=== PATIENT | female | born 1975 | race Caucasian/White ===

== ENCOUNTER 2019-06-29 20:25 | Emergency (ER) | payer MEDICAID ==
[~2019-06-29] VITALS: Ht 157.5 cm; Wt 72.6 kg
[~2019-06-29 20:25] MED LIST: AMOX500C25 PO
[2019-06-29 20:30] VITALS: BP 120/74
[2019-06-29 21:55] VITALS: BP 120/74
== END 2019-06-29 21:55 | disposition home or self-care (01) ==
LOC: MED 20:25
DX: H11.32 Conjunctival hemorrhage, left eye (principal); Z98.84 Bariatric surgery status; Z88.1 Allergy status to other antibiotic agents
CPT/HCPCS: 82948; 99282

== ENCOUNTER 2020-11-12 16:25 | Emergency (ER) | payer MEDICAID ==
[~2020-11-12] VITALS: Ht 157.5 cm; Wt 77.1 kg
--- NOTE | 2020-11-12 16:32 | NUR ---
PATIENT AMBULATED TO BED 3 WITH EVEN/STEADY GAIT.
--- NOTE | 2020-11-12 16:40 | NUR ---
PATIENT AMBULATED TO RESTROOM WITH STEADY/EVEN GAIT FOR URINE SAMPLE.
--- NOTE | 2020-11-12 16:43 | NUR ---
44 Y/O F COMING IN FROM HOME WITH C/C RLQ ABDOMINAL PAIN. PATIENT STATES SHE BEGAN EXPERIENCING RLQ ABDOMINAL PAIN A WEEK AGO. SHE STATES IT WAS INITIALLY 9/10 SHARP PAIN. PT STATES SHE PURCHASE AZO OTC AND BEGAN DRANKING CRANBERRY JUICE. PT STATES POSITIVE RELIEF WITH AZO/CRANBERRY JUICE HOWEVER, STATES THE PAIN PERSISTS IN RLQ. PT STATES IT IS NOW 8/10 PAIN THAT IS SHARP/INTERMITTENT. PT STATES ASSOCIATED DYSURIA. PT DENIES NAUSEA, VOMITING, FEVER/CHILLS, COLD-LIKE SYMPTOMS. BOWEL SOUNDS ACTIVE X 4 QUADRANTS. PT STATES LAST BM 11/12, BROWN/SEMI-FORMED. LMP 10/25/20. PT PLACED ONTO WATER OPERATOR. LUNG SOUNDS CTA. BED LOCKED IN LOWEST POSITION, SIDE RAILS X1, CALL LIGHT IN REACH. PMH/MEDS: GHADA JEFF SX: 2014 GASTRIC BYPASS
[2020-11-12 16:44] VITALS: BP 128/74
--- NOTE | 2020-11-12 16:52 | NUR ---
DR. KAUR IS EVALUATING PATIENT AT BEDSIDE.
--- NOTE | 2020-11-12 17:15 | NUR ---
PT SITTING IN SEMI-FOWLERS IN POSITION OF COMFORT. ALL PT NEEDS MET AT THIS TIME. PT REMAINS ON USABILITY SPECIALIST. EQUAL CHEST RISE AND FALL. BED LOCKED IN LOWEST POSITION, SIDE RAILS X 1, CALL LIGHT IN REACH.
[2020-11-12 17:26] VITALS: BP 111/75
--- NOTE | 2020-11-12 17:31 | NUR ---
Soledad ferrell in [facility] - 11/12/20 at 1731 by COLE D
== END 2020-11-12 17:26 | disposition home or self-care (01) ==
LOC: MED 16:25
DX: N39.0 Urinary tract infection, site not specified (principal); Z88.1 Allergy status to other antibiotic agents
CPT/HCPCS: 81002; 99283

== ENCOUNTER 2021-06-23 09:23 | Emergency (ER) | payer MEDICAID ==
[~2021-06-23] VITALS: Ht 157.5 cm; Wt 81.4 kg
[2021-06-23 09:31] VITALS: BP 129/77
[2021-06-23] MEDS ORDERED: AMOXIL/CLAVULANATE 875/125 MG 1 TAB PO ONE (09:45)
[2021-06-23] MEDS ORDERED: ACETAMINOPHEN EXTRA STRENGTH 500 MG TAB PO ONE (09:45)
[2021-06-23] MEDS ORDERED: BACITRACIN OINT 500 UNITS/GM PKT TP ONE (09:45)
--- NOTE | 2021-06-23 09:53 | NUR ---
PT TAKEN TO RAD VIA W/C
--- NOTE | 2021-06-23 09:55 | NUR ---
45 Y/O FEMALE PRESENTS TO ED WITH DOG BITE TO L HAND/THUMB LAST NIGHT. SKIN BROKEN, CONTROLLED BLEEDING. DOG HAS RABIES VACCINE. PT CLEANED BITE WITH PEROXIDE. PT RATES PAIN 10/10. PT A/O X4 WITH EVEN AND UNLABORED RESPIRATIONS. PMH:DENIES SX:GASTRIC BYPASS NKDA
--- NOTE | 2021-06-23 10:01 | NUR ---
PT BACK FROM RAD, WILL GO TO CHAIR A
--- NOTE | 2021-06-23 10:09 | NUR ---
PT WOUND DRESSED WITH NON-ADHERENT GAUZE PAD AND WRAPED WITH GAUZE ROLL
[2021-06-23] MEDS ORDERED: AMOX-1000 PO (10:26)
[2021-06-23] MEDS ORDERED: IBUP-2213 PO (10:26)
--- NOTE | 2021-06-23 10:30 | NUR ---
Soledad ferrell in [facility] - 06/23/21 at 1046 by [email or web address] DOG REPORT FAXED.
[2021-06-23 10:32] VITALS: BP 129/77
--- NOTE | 2021-06-23 10:33 | NUR ---
Patient discharged with v/s stable. Written and verbal after care instructions given and explained. Patient alert, oriented and verbalized understanding of instructions. Ambulatory with steady gait. All questions addressed prior to discharge. ID band removed. Patient advised to follow up with PMD. Rx of AMOXICILLIN/POTASSIUM given. Patient educated on indication of medication including possible reaction and side effects. Opportunity to ask questions provided and answered.
--- NOTE | 2021-06-23 10:42 | NUR ---
DOG BIT REPORT FAXED TO [facility] [phone]
== END 2021-06-23 10:32 | disposition home or self-care (01) ==
LOC: MED 09:23
DX: S61.452A Open bite of left hand, initial encounter (principal); W54.0XXA Bitten by dog, initial encounter; Y93.89 Activity, other specified; Y92.89 Other specified places as the place of occurrence of the external cause; Y99.8 Other external cause status
CPT/HCPCS: 73130; 90471; 90715; 99284; Q0092

== ENCOUNTER 2022-06-08 14:26 | Emergency (ER) | payer MEDICAID ==
[~2022-06-08] VITALS: Ht 157.5 cm; Wt 70.8 kg
[~2022-06-08 14:26] MED LIST changes: +AMOX-1000 PO; +IBUP-2213 PO
[2022-06-08 14:31] VITALS: BP 117/76
[2022-06-08 16:21] VITALS: BP 109/80
--- NOTE | 2022-06-08 16:21 | NUR ---
Patient discharged with v/s stable. Written and verbal after care instructions given and explained. Patient verbalized understanding. Ambulatory with steady gait. All questions addressed prior to discharge. Advised to follow up with PMD.
== END 2022-06-08 16:21 | disposition home or self-care (01) ==
LOC: MED 14:26
DX: H11.001 Unspecified pterygium of right eye (principal); Z79.1 Long term (current) use of non-steroidal anti-inflammatories (NSAID); Z79.2 Long term (current) use of antibiotics
CPT/HCPCS: 99282